=== PATIENT | male | born 1980 | race African-American/Black ===

== ENCOUNTER 2017-12-01 01:48 | Emergency (ER) | payer SELFPAY ==
[2017-12-01 02:07] VITALS: BP 147/90; PULSE 61; RESP 18; TEMP 97.9; O2SAT 98
[2017-12-01 02:21] VITALS: BP 140/79; PULSE 56; RESP 18; O2SAT 97
[2017-12-01] MEDS ORDERED: SODIUM CHLOR 0.9% 1000 ML INJ 1,000 ML IV ONE (02:33)
[2017-12-01 02:44] VITALS: O2SAT 99
[2017-12-01] MEDS ORDERED: MORPHINE SULFATE 2 MG/ML SYRINGE IV PUSH ONE (02:45)
[2017-12-01] MEDS ORDERED: PROCHLORPERAZINE INJ 10 MG/2 ML VIAL IVP ONE (02:45)
[2017-12-01] MEDS ORDERED: KETOROLAC TROMETHAMINE 30 MG/ML (IVP) VIAL IVP ONE (02:45)
[2017-12-01] MEDS ORDERED: diphenhydrAMINE HCL 50 MG/ML VIAL IVP ONE (02:45)
[2017-12-01] MEDS ORDERED: SODIUM CHLORIDE 0.9% FLUSH 10 ML FLUSH IVF PRN (02:45)
--- NOTE | 2017-12-01 02:48 | PD ---
HPI Chief Complaint: Chest Pain Time Seen by Provider: 02:19 Travel History International Travel<30 days: No Contact w/Intl Traveler<30days: No Traveled to known affect area: No History of Present Illness HPI The patient is a 37-year-old -[place] male who presents to the emergency department for headache, chest pain, and fever with chills., And constant. He then developed a headache located in the posterior right aspect of the head with mild photophobia. He does have a history of migraines as a child. He also notes intermittent chills and subjective fever and a dry mostly nonproductive cough. The patient also complains of some left-sided pleuritic chest pain, worse with coughing and inspiration. He denies any history of known coronary artery disease, hypertension, hyperlipidemia, diabetes, pulmonary embolism, recent surgery, recent hospitalizations. The patient did recently travel from [place] to the local area in October 2017. Symptoms are moderate. PFSH Past Medical History Asthma: Yes (childhood) Diminished Hearing: No Headaches: Yes Tetanus Vaccination: Unknown Influenza Vaccination: No Past Surgical History Eye Surgery: Yes (sx for blood behind retina) Social History Alcohol Use: Yes (occasionally) Tobacco Use: Yes (08/09 ppd) Substance Use: Yes (marijuana) Allergies-Medications (Allergen,Severity, Reaction): Coded Allergies: No Known Allergies (Unverified , 12/01/17) Reported Meds & Prescriptions Reported Meds & Active Scripts Active No Active Prescriptions or Reported Medications Review of Systems Except as stated in HPI: all other systems reviewed are Neg General / Constitutional: Positive: Fever, Chills Eyes: Positive: Photophobia HENT: Positive: Headaches, Congestion, No: Neck Pain Cardiovascular: Positive: Chest Pain or Discomfort Respiratory: Positive: Cough, Shortness of Breath Gastrointestinal: Positive: Nausea, No: Vomiting, Diarrhea, Abdominal Pain Musculoskeletal: No: Myalgias Physical Exam Narrative GENERAL: Awake, alert, nontoxic-appearing 37-year-old male who appears his stated age and is in no acute respiratory distress. SKIN: Focused skin assessment warm/dry. HEAD: Atraumatic. Normocephalic. EYES: Pupils equal and round. 3 mm bilateral. EOMs are intact. ENT: No nasal bleeding or discharge. Mucous membranes pink and moist. NECK: Trachea midline. No JVD. CARDIOVASCULAR: Regular rate and rhythm. No murmur appreciated. Palpation of the chest wall does not reproduce symptoms. RESPIRATORY: No accessory muscle use. Clear to auscultation. Breath sounds equal bilaterally. GASTROINTESTINAL: Abdomen soft, non-tender, nondistended. No epigastric tenderness. No guarding rigidity. MUSCULOSKELETAL: No obvious deformities. No clubbing. No cyanosis. No edema. NEUROLOGICAL: Awake and alert. No obvious cranial nerve deficits. Motor grossly within normal limits. Normal speech. Nonfocal. Oriented 4. PSYCHIATRIC: Appropriate mood and affect; insight and judgment normal. Data Data Last Documented VS Vital Signs Date Time Temp Pulse Resp B/P (MAP) Pulse Ox O2 Delivery O2 Flow Rate FiO2 12/01/17 03:03 60 16 130/73 (92) 97 Room Air 12/01/17 02:07 97.9 Orders Orders Complete Blood Count With Diff (12/01/17 02:33) Comprehensive Metabolic Panel (12/01/17 02:33) Ecg Monitoring (12/01/17 02:33) Iv Access Insert/Monitor (12/01/17 02:33) Oximetry (12/01/17 02:33) Sodium Chloride 0.9% Flush (Ns Flush) (12/01/17 02:45) Ketorolac Inj (Toradol Inj) (12/01/17 02:45) Prochlorperazine Inj (Compazine Inj) (12/01/17 02:45) Diphenhydramine Inj (Benadryl Inj) (12/01/17 02:45) Sodium Chlor 0.9% 1000 Ml Inj (Ns 1000 M (12/01/17 02:33) Troponin I (12/01/17 02:33) Creatine Kinase (Cpk) (12/01/17 02:33) Morphine Inj (Morphine Inj) (12/01/17 02:45) Chest, Single Ap (12/01/17 ) Influenzae A/B Antigen (12/01/17 02:33) CKMB (12/01/17 02:30) CKMB% (12/01/17 02:30) Ed Discharge Order (12/01/17 03:37) Labs Laboratory Tests Test 12/01/17 02:30 White Blood Count 6.2 TH/MM3 Red Blood Count 4.80 MIL/MM3 Hemoglobin 14.0 GM/DL Hematocrit 41.0 % Mean Corpuscular Volume 85.5 FL Mean Corpuscular Hemoglobin 29.2 PG Mean Corpuscular Hemoglobin Concent 34.2 % Red Cell Distribution Width 12.9 % Platelet Count 328 TH/MM3 Mean Platelet Volume 7.8 FL Neutrophils (%) (Auto) 47.8 % Lymphocytes (%) (Auto) 37.0 % Monocytes (%) (Auto) 10.9 % Eosinophils (%) (Auto) 3.8 % Basophils (%) (Auto) 0.5 % Neutrophils # (Auto) 2.9 TH/MM3 Lymphocytes # (Auto) 2.3 TH/MM3 Monocytes # (Auto) 0.7 TH/MM3 Eosinophils # (Auto) 0.2 TH/MM3 Basophils # (Auto) 0.0 TH/MM3 CBC Comment DIFF FINAL Differential Comment Blood Urea Nitrogen 14 MG/DL Creatinine 1.24 MG/DL Random Glucose 98 MG/DL Total Protein 7.5 GM/DL Albumin 3.7 GM/DL Calcium Level 8.9 MG/DL Alkaline Phosphatase 60 U/L Aspartate Amino Transf (AST/SGOT) 38 U/L Alanine Aminotransferase (ALT/SGPT) 51 U/L Total Bilirubin 0.5 MG/DL Sodium Level 142 MEQ/L Potassium Level 3.6 MEQ/L Chloride Level 106 MEQ/L Carbon Dioxide Level 26.8 MEQ/L Anion Gap 9 MEQ/L Estimat Glomerular Filtration Rate 66 ML/MIN Total Creatine Kinase 931 U/L Creatine Kinase MB 5.2 NG/ML Creatine Kinase MB % 0.6 % Troponin I LESS THAN 0.02 NG/ML MDM Medical Decision Making Medical Screen Exam Complete: Yes Emergency Medical Condition: Yes Medical Record Reviewed: Yes Interpretation(s) EKG reveals sinus rhythm with sinus arrhythmia. LVH by voltage criteria. Nonspecific T-wave changes. Last Impressions Chest X-Ray 12/01/17 0000 Signed Impressions: Service Date/Time: Friday, December 01, 2017 02:42 - CONCLUSION: The lungs are clear. Cedric Stuart MD Laboratory Tests Test 12/01/17 02:30 White Blood Count 6.2 TH/MM3 Red Blood Count 4.80 MIL/MM3 Hemoglobin 14.0 GM/DL Hematocrit 41.0 % Mean Corpuscular Volume 85.5 FL Mean Corpuscular Hemoglobin 29.2 PG Mean Corpuscular Hemoglobin Concent 34.2 % Red Cell Distribution Width 12.9 % Platelet Count 328 TH/MM3 Mean Platelet Volume 7.8 FL Neutrophils (%) (Auto) 47.8 % Lymphocytes (%) (Auto) 37.0 % Monocytes (%) (Auto) 10.9 % Eosinophils (%) (Auto) 3.8 % Basophils (%) (Auto) 0.5 % Neutrophils # (Auto) 2.9 TH/MM3 Lymphocytes # (Auto) 2.3 TH/MM3 Monocytes # (Auto) 0.7 TH/MM3 Eosinophils # (Auto) 0.2 TH/MM3 Basophils # (Auto) 0.0 TH/MM3 CBC Comment DIFF FINAL Differential Comment Blood Urea Nitrogen 14 MG/DL Creatinine 1.24 MG/DL Random Glucose 98 MG/DL Total Protein 7.5 GM/DL Albumin 3.7 GM/DL Calcium Level 8.9 MG/DL Alkaline Phosphatase 60 U/L Aspartate Amino Transf (AST/SGOT) 38 U/L Alanine Aminotransferase (ALT/SGPT) 51 U/L Total Bilirubin 0.5 MG/DL Sodium Level 142 MEQ/L Potassium Level 3.6 MEQ/L Chloride Level 106 MEQ/L Carbon Dioxide Level 26.8 MEQ/L Anion Gap 9 MEQ/L Estimat Glomerular Filtration Rate 66 ML/MIN Total Creatine Kinase 931 U/L Creatine Kinase MB 5.2 NG/ML Creatine Kinase MB % 0.6 % Troponin I LESS THAN 0.02 NG/ML Date/Time Source Procedure Growth Status 12/01/17 02:38 Nasal Aspirate Influenza Types A,B Antigen (ALESSANDRA) - Final NEGATIVE FOR FLU A AND B ANTIGEN.... Complete Differential Diagnosis Differential diagnosis includes viral syndrome, influenza, pneumonia, pleural effusion, esophageal spasm, ACS, gastritis, pancreatitis, migraine, tension headache, glaucoma. Narrative Course IV was established, labs are drawn and sent, and the patient was placed on cardiac telemetry monitoring and continuous pulse oximetry monitoring. EKG was ordered and interpreted. Chest x-ray was obtained. The patient was given a migraine cocktail with Compazine, Benadryl, Toradol, morphine, and IV fluids. Influenza screen was sent to lab. Influenza screen was negative. Chest x-ray was negative, no evidence of pneumonia. Troponin was less than 0.02. CPK was elevated in the 900s, mild rhabdomyolysis. EKG revealed sinus rhythm with sinus arrhythmia and nonspecific T-wave changes, no significant ST elevations or depressions were noted. The patient has had constant chest pain for 4 days with atypical symptoms, I doubt ACS. He also has underlying headache, subjective fevers and cough, most likely viral. The patient was reevaluated at 4 AM. The patient's headache has moderately improved. The patient's troponin was negative, CPK was elevated with CPK MB been elevated, however, CPK-MB percentage was normal at 0.6. The patient is advised to follow-up with primary physician. Return if symptoms worsen or progress. He will be provided a copy of his x-ray results, flu results, lab results at discharge. He is advised to return if symptoms worsen or progress. Diagnosis Primary Impression: Cephalgia Qualified Codes: R51 - Headache Additional Impressions: Atypical chest pain Rhabdomyolysis Qualified Codes: M62.82 - Rhabdomyolysis Patient Instructions: General Instructions Additional Instructions: Please provide the patient a copy of his lab results and x-ray results at discharge. Plenty fluids to stay hydrated. Follow-up with a primary physician. Return if symptoms worsen or progress. Scripts No Active Prescriptions or Reported Meds Disposition: 01 DISCHARGE HOME Condition: Stable Haim Storey MD Dec 01, 2017 02:48
[2017-12-01 03:00] LABS: AUTOMATED NEUTROPHIL # 2.9 TH/MM3 (1.8-7.7); BASOPHIL % 0.5 % (0.0-2.0); EOSINOPHIL # 0.2 TH/MM3 (0-0.4); EOSINOPHIL % 3.8 % (0.0-4.0); LYMPHOCYTE # 2.3 TH/MM3 (1.0-4.8); MEAN CELL VOLUME 85.5 FL (80.0-100.0); MEAN CORPUSCULAR HEMOGLOBIN 29.2 PG (27.0-34.0); MEAN CORPUSCULAR HGB CONC 34.2 % (32.0-36.0); MEAN PLATELET VOLUME 7.8 FL (7.0-11.0); MONO % 10.9 % (0.0-8.0); MONOCYTE # 0.7 TH/MM3 (0-0.9); NEUT % 47.8 % (16.0-70.0); PLATELET COUNT 328 TH/MM3 (150-450); RED CELL DISTRIBUTION WIDTH 12.9 % (11.6-17.2); WHITE BLOOD COUNT 6.2 TH/MM3 (4.0-11.0)
[2017-12-01 03:03] VITALS: BP 130/73; PULSE 60; RESP 16; O2SAT 97
[2017-12-01 03:11] LABS: ALKALINE PHOSPHATASE 60 U/L (45-117); TOTAL BILIRUBIN ADULT 0.5 MG/DL (0.2-1.0); TOTAL PROTEIN 7.5 GM/DL (6.4-8.2); TROPONIN I LESS THAN 0.02 NG/ML (0.02-0.05)
--- NOTE | 2017-12-01 03:13 | RADRPT ---
EXAM DATE/TIME: 12/01/2017 02:42 [facility] COMPARISON: No previous studies available for comparison. INDICATIONS : Bilateral anterior chest pain when coughing or inspiration. MEDICAL HISTORY : None. SURGICAL HISTORY : None. ENCOUNTER: Initial ACUITY: 1 day PAIN SCORE: 6/10 LOCATION: Left chest FINDINGS: A single view of the chest demonstrates the lungs to be symmetrically aerated without evidence of mas s, infiltrate or effusion. No evidence of pneumothorax. The cardiomediastinal contours are unremark able. Osseous structures are intact. CONCLUSION: The lungs are clear. Cedric Stuart MD on December 01, 2017 at 3:10 Board Certified Radiologist. This report was verified electronically.
[2017-12-01 03:32] LABS: ALBUMIN 3.7 GM/DL (3.4-5.0); ALT (GPT) 51 U/L (12-78); AST (GOT) 38 U/L (15-37); BICARBONATE 26.8 MEQ/L (21.0-32.0); BLOOD UREA NITROGEN 14 MG/DL (7-18); CALCIUM 8.9 MG/DL (8.5-10.1); CHLORIDE 106 MEQ/L (98-107); CREATININE 1.24 MG/DL (0.60-1.30); GLOMERULAR FILTRATION RATE 66 ML/MIN (>89); GLUCOSE,RANDOM 98 MG/DL (74-106); SODIUM (NA) 142 MEQ/L (136-145)
[2017-12-01 04:00] VITALS: BP 127/62; PULSE 58; RESP 14; O2SAT 97
[2017-12-01 04:30] VITALS: BP 124/65; PULSE 50; RESP 14; O2SAT 99
--- NOTE | 2017-12-01 14:20 | EKG ---
Date Performed: 12/01/2017 Time Performed: 02:20:58 PTAGE: 37 years EKG: Sinus rhythm WITH SINUS ARRHYTHMIA MINIMAL VOLTAGE CRITERIA FOR LVH, CONSIDER NORMAL VARIANT NONSPECIFIC T-WAVE A BNORMALITY BORDERLINE ECG NO PREVIOUS TRACING DOCTOR: Garrett Fisher Interpretating Date/Time 12/01/2017 14:17:58
== END 2017-12-01 04:55 | disposition home or self-care (01) ==
LOC: NEPC 01:48
DX: R51 Headache (principal); R07.89 Other chest pain; M62.82 Rhabdomyolysis; F12.90 Cannabis use, unspecified, uncomplicated; F17.200 Nicotine dependence, unspecified, uncomplicated
CPT/HCPCS: 71045; 80053; 82550; 82552; 84484; 85025; 87804; 93005; 96361; 96374; 96375; 99285; J0780; J1200; J1885; J2270; J7030